=== PATIENT | female | born 1965 | race Native Hawaiian/Other Pacific Islander ===

== ENCOUNTER 2017-09-16 10:07 | Outpatient (CLI) | payer BC | END 2017-09-16 23:34 | disposition home or self-care (01) | LOC: US 10:07 → LAB 10:07 → US 23:34 | DX: R60.0 Localized edema (principal) | CPT/HCPCS: 84484 ==

== ENCOUNTER 2017-09-23 18:06 | Outpatient (CLI) | payer BC | END 2017-09-23 21:51 | disposition home or self-care (01) | LOC: LAB 18:06 | DX: R60.0 Localized edema (principal) | CPT/HCPCS: 83880 ==

== ENCOUNTER 2019-06-24 14:58 | Outpatient (CLI) | payer BC | END 2019-06-24 19:30 | disposition home or self-care (01) | LOC: RAD 14:58 | DX: R20.8 Other disturbances of skin sensation (principal); R20.2 Paresthesia of skin ==